=== PATIENT | female | born 1995 | race American Indian/Alaskan Native ===

== ENCOUNTER 2017-06-05 19:50 | Emergency (ER) | payer MEDICAID ==
[2017-06-05 21:00] LABS: Basophils % (Auto) 0.4 % (0.0-1.8); Eosinophils % (Auto) 0.2 % (0.0-4.3); Hematocrit 42.1 % (30.3-42.9); Lymphocytes # (Auto) 1.5 K/mm3 (1.2-5.4); Lymphocytes % (Auto) 13.5 % (13.4-35.0); Mean Corpuscular HGB Conc 33 % (30-34); Mean Corpuscular Hemoglobin 29 pg (28-32); Mean Corpuscular Volume 86 fl (79-97); Monocytes # (Auto) 0.8 K/mm3 (0.0-0.8); Monocytes % (Auto) 7.4 % (0.0-7.3); Red Blood Count 4.87 M/mm3 (3.65-5.03); Red Cell Distribution Width 14.2 % (13.2-15.2)
[2017-06-05 21:01] LABS: Platelet Count 127 K/mm3 (140-440)
[2017-06-05 21:05] LABS: BUN/Creatinine Ratio 24; Blood Urea Nitrogen 17 mg/dL (7-17); Calcium 9.5 mg/dL (8.4-10.2); Hemolysis Index 39
--- NOTE | 2017-06-05 23:29 | Emergency Department Report ---
ED Anxiety HPI - General Chief Complaint: Anxiety Stated Complaint: BACK PAIN,ANXIETY Time Seen by Provider: 06/05/17 22:34 Source: patient Mode of arrival: Ambulatory - History of Present Illness MD Complaint: anxiety (She has h/o anxiety treated with Effexor, Buspar, and Seraquel but she ran out of her meds a couple of days ago. She also c/o headache pounding moderate associated with lower back pain. She denies being suicidal or homocidal. She wants refill on her meds.), other - Related Data Home Medications: Previous Rx's Medication Instructions Recorded Last Taken Type Venlafaxine [Effexor 25mg tab] 25 mg PO TIDWM #90 tablet 06/06/17 Unknown Rx busPIRone [Buspar] 10 mg PO BID #60 tab 06/06/17 Unknown Rx Allergies/Adverse Reactions: Allergies Allergy/AdvReac Type Severity Reaction Status Date / Time No Known Allergies Allergy Unverified 06/05/17 20:24 ED Review of Systems ROS: Stated complaint: BACK PAIN,ANXIETY Other details as noted in HPI Constitutional: denies: chills, fever Eyes: denies: eye pain, eye discharge, vision change ENT: denies: ear pain, throat pain Respiratory: denies: cough, shortness of breath, wheezing Cardiovascular: denies: chest pain, palpitations Endocrine: no symptoms reported Gastrointestinal: denies: abdominal pain, nausea, diarrhea Genitourinary: denies: urgency, dysuria, discharge Musculoskeletal: back pain. denies: joint swelling, arthralgia Skin: denies: rash, lesions Neurological: headache. denies: weakness, paresthesias Psychiatric: denies: anxiety, depression Hematological/Lymphatic: denies: easy bleeding, easy bruising ED Past Medical Hx - Past Medical History Previous Medical History?: Yes Hx Psychiatric Treatment: Yes (Bipolar, anxiety, depression) - Surgical History Past Surgical History?: No - Social History Smoking Status: Current Every Day Smoker - Medications Home Medications: Home Medications Medication Instructions Recorded Confirmed Last Taken Type Venlafaxine [Effexor 25mg tab] 25 mg PO TIDWM #90 tablet 06/06/17 Unknown Rx busPIRone [Buspar] 10 mg PO BID #60 tab 06/06/17 Unknown Rx ED Physical Exam - General Limitations: No Limitations General appearance: alert, in no apparent distress - Head Head exam: Present: atraumatic, normocephalic - Eye Eye exam: Present: normal appearance - ENT ENT exam: Present: mucous membranes moist - Neck Neck exam: Present: normal inspection - Respiratory Respiratory exam: Present: normal lung sounds bilaterally. Absent: respiratory distress - Cardiovascular Cardiovascular Exam: Present: regular rate, normal rhythm. Absent: systolic murmur, diastolic murmur, rubs, gallop - GI/Abdominal GI/Abdominal exam: Present: soft, normal bowel sounds - Extremities Exam Extremities exam: Present: normal inspection - Back Exam Back exam: Present: normal inspection, tenderness (lower back) - Neurological Exam Neurological exam: Present: alert, oriented X3 - Psychiatric Psychiatric exam: Present: normal affect, normal mood - Skin Skin exam: Present: warm, dry, intact, normal color. Absent: rash ED Course Vital Signs 06/05/17 20:26 Temperature 98.1 F Pulse Rate 96 H Respiratory 20 Rate Blood Pressure 122/74 O2 Sat by Pulse 95 Oximetry ED Medical Decision Making - Lab Data Result diagrams: 06/05/17 20:40 06/05/17 20:40 Critical care attestation.: If time is entered above; I have spent that time in minutes in the direct care of this critically ill patient, excluding procedure time. ED Disposition Clinical Impression: Anxiety Headache Qualifiers: Headache type: tension-type Headache chronicity pattern: unspecified pattern Intractability: not intractable Qualified Code(s): G44.209 - Tension-type headache, unspecified, not intractable Backache Qualifiers: Back pain location: low back pain Chronicity: acute Back pain laterality: unspecified Sciatica presence: without sciatica Qualified Code(s): M54.5 - Low back pain Disposition: - TO HOME OR SELFCARE Is pt being admited?: No Does the pt Need Aspirin: No Condition: Stable Instructions: Anxiety (ED) Prescriptions: busPIRone [Buspar] 10 mg PO BID #60 tab Venlafaxine [Effexor 25mg tab] 25 mg PO TIDWM #90 tablet Referrals: DEREJE SUBRAMANIAN MD [Primary Care Provider] - 3-5 Days Time of Disposition: 00:14
[2017-06-05] MEDS ORDERED: TORADOL IM ONE (23:45)
[2017-06-05] MEDS ORDERED: ZOFRAN ODT PO ONE (23:45)
[2017-06-06 00:25] VITALS: BP 107/61
== END 2017-06-06 00:24 | disposition home or self-care (01) ==
LOC: ED 19:50
DX: F41.9 Anxiety disorder, unspecified (principal); M54.5 Low back pain; F31.9 Bipolar disorder, unspecified; F17.200 Nicotine dependence, unspecified, uncomplicated
CPT/HCPCS: 36415; 80048; 84703; 85025; 96372; 99283; G0480; J1885; 80320; Q0162